=== PATIENT | female | born 1950 | race Two or more races ===

== ENCOUNTER 2020-08-08 13:26 | Emergency (ER) | payer OTHER ==
[~2020-08-08] VITALS: Ht 157.5 cm; Wt 99.8 kg
[2020-08-08] MEDS ORDERED: SYNTHROID50 MCG (13:44)
[2020-08-08] MEDS ORDERED: HYDROCHLOROTHIA25 MG (13:44)
[2020-08-08] MEDS ORDERED: BUDESONIDE0.5 MG/21 IH (16:11)
[2020-08-08] MEDS ORDERED: ZITHROMAX500 MG PO (16:11)
[2020-08-08] MEDS ORDERED: PROMETH-CODEIN 65 ML PO (16:11)
[2020-08-08] MEDS ORDERED: XOPENEX CO1.25 MG/0. IH (16:11)
== END 2020-08-08 20:17 | disposition home or self-care (01) ==
LOC: ER 13:26
DX: J45.998 Other asthma (principal); B34.9 Viral infection, unspecified; Z03.818 Encounter for observation for suspected exposure to other biological agents ruled out; R06.02 Shortness of breath